=== PATIENT | male | born 1995 | race Caucasian/White ===

== ENCOUNTER 2017-06-01 14:54 | Emergency (ER) | payer SELFPAY ==
--- NOTE | 2017-06-01 16:09 | ED ORDER SUMMARY ---
..... Patient: RAQUEL EDWARDS OrderSheet [facility] VisitID: [id number] [place] [address] 22y, M Registration Date/Time: 06/01/2017 ORDER SHEET Weight: 104.3 kg (stated) Allergies: No Known Drug Allergy GENERAL ORDERS: CBC w Diff Urgent (15:11 06/01/2017 HBivens A.R.N.P.) (Ack 15:15 OHstephennandez) (15:23 LWhalen R.N.) CMP Urgent (15:06/01/2017 HBivens A.R.N.P.) (Ack 15:15 OHstephennandez) (15:23 LWhalen R.N.) UA-Culture if indicated Urgent (15:06/01/2017 HBivens A.R.N.P.) (Ack 15:15 Lindanandez) (15:23 LWhalen R.N.) Amylase Urgent (15:06/01/2017 HBivens A.R.N.P.) (Ack 15:15 OHernandez) (15:23 LWhalen R.N.) Lipase Urgent (15:11 06/01/2017 HBivens A.R.N.P.) (Ack 15:15 OHernandez) (15:23 LWhalen R.N.) MEDICATION ORDERS: GI Cocktail WHITE PO 30 mL with Lidocaine Viscous Mouth/Throat 15 mL, Maalox Plus Oral 15 mL (NOW) (15:06/01/2017 HBivens A.R.N.P.) (15:23 LWhalen R.N.) IV FLUIDS: IV Saline Lock (15:06/01/2017 HBivens A.R.N.P.) (Ack 15:23 LWhalen R.N.) Zofran IV 4 mg (NOW) (16:08 06/01/2017 HBivens A.R.N.P.) (16:25 LWhalen R.N.) ORDER SHEET NOTES: [Electronically signed by Elizabeth Chandler R.N. (16:30 06/01/2017)] [Electronically signed by Shirin Sherwood (17:56 06/01/2017)] [Electronically locked/signed by Elizabeth Chandler R.N. (16:30 06/01/2017)]
--- NOTE | 2017-06-01 16:09 | ED NURSING NOTES ---
Clinical Report - Nurses [facility] [address] [place] [address] 06/01/2017 14:55 Patient: RAQUEL EDWARDS TRIAGE Triage time 15:Jun 01 2017. Acuity: LEVEL 3. Chief Complaint: ABDOMINAL PAIN and NAUSEA. ARELI COMA SCORE: Spencer Coma Scale: 15- eyes open spontaneously (4); best verbal response- oriented x 4 (5); best motor response- obeys commands (6). --15:13 Elizabeth Chandler R.N. 15:01 06/01/17. BP: 172/74. HR: 8. RR: 18. O2 saturation: 100%. Temp: 98.6 F. Pain level now 7/10. --15:13 Elizabeth Chandler R.N. Weight: 104.3 kg stated. Height/Length: 67 inches Per Patient. BMI: 36. --15:09 Elizabeth Chandler R.N. Medications Omeprazole Oral. --15:05 Elizabeth Chandler R.N. Phenergan (Promethazine) Oral. --15:05 Elizabeth Chandler R.N. Flonase Nasal. --15:06 Elizabeth Chandler R.N. Allergies No Known Drug Allergy. --15:06 Elizabeth Chandler R.N. History Arrived by private vehicle. Historian: patient. Accompanied by (aunt). Onset. (2 weeks ago). ( Lost 15 lbs in 2 weeks. Having severe nausea and stomach aches. With pains that radiate from upper left quad of abd and sharp pains on right upper quad that comes and goes.). He has had nausea, diarrhea, constipation and abdominal pain. PAST MEDICAL HX: Immunizations: status is unknown. SOCIAL HX: Former smoker, end date 2014. History of drug use: marijuana. No alcohol use. No recent travel. No known contact with a sick individual. SELF HARM ASSESSMENT: A self harm assessment was performed. The patient answered "no" to the question "Have you recently felt down, depressed, or hopeless?" and "Do you have thoughts of harming or killing yourself?". FALL RISK ASSESSMENT: Fall risk assessment completed. No fall risk identified. NUTRITIONAL RISK ASSESSMENT: The nutritional risk assessment revealed no deficiencies. FUNCTIONAL ASSESSMENT: Functional assessment: no impairments noted. LEARNING NEEDS ASSESSMENT: The learning needs assessment revealed no barriers. ABUSE ASSESSMENT: Abuse assessment: (yes) The patient was asked "Do you feel safe in your home?". SKIN INTEGRITY ASSESSMENT: Skin integrity risk assessment completed. No skin integrity risk identified. --15:13 Elizabeth Chandler R.N. PROBLEMS: Heasdaches . Seasonal allergic rhinitis. Asthma. --15:08 Elizabeth Chandler R.N. ADDITIONAL SURGERIES: Pyloric Stenosis Surgery. Tonsillectomy. --15:08 Elizabeth Chandler R.N. Interventions ID band on patient. --15:13 Elizabeth Chandler R.N. PHYSICAL ASSESSMENT Ambulatory to room. GENERAL / NEURO / PSYCH: Alert. Oriented X 4. Appears in no acute distress. HEENT: Mucous membranes are pink. RESPIRATORY: Respirations not labored. Breath sounds within normal limits. CVS: Normal sinus rhythm noted. Capillary refill less than 2 seconds. GI / : The patient has had nausea. Abdominal tenderness. Normal genitalia. Stool color normal. Stool heme negative. (POC test reference range: negative). ( Last BM this am and normal). SKIN: Skin is warm and dry. --15:15 Elizabeth Chandler R.N. NURSING PROGRESS NOTES The initial plan of care for this patient includes an assessment with efforts to address patient positioning, appropriate ambient lighting and comfortable environmental temperature; impairment of the gastrointestinal system. Pulse oximeter and NIBP monitor placed on patient. Head of bed elevated 75 degrees. Reassurance given. Call light placed in reach. Side rails up x 1. Bed placed in lowest position. --15:15 Elizabeth Chandler R.N. 15:18 06/01/2017 GI COCKTAIL WHITE (Simethicone) PO Oral Suspension 30 mL given. Allergies verified and confirmed 5 rights. --15:23 Elizabeth Chandler R.N. 15:24. Checked patient name and birthdate: patient confirmed. Blood samples drawn from the right antecubital space by tech per protocol ; labeled in presence of the patient and sent to lab: sammy set. --15:24 Janee Bob ER Tech1 15:59 06/01/2017 Site #1 started via IV in the right antecubital space with an 20g angiocath, with aseptic technique and good blood return; one attempt. Saline lock flushed with saline. --16:24 Elizabeth Chandler R.N. 16:24 06/01/2017 Zofran (Ondansetron HCl) IVP 4 mg given over 2 minute(s) via site #1. Allergies verified and confirmed 5 rights. IV patency established. IV site checked: no pain, redness, or swelling. IV flushed thoroughly pre- and post-medication administration. --16:25 Elizabeth Chandler R.N. DISPOSITION / DISCHARGE Condition at departure: improved. No learning barriers present. Discharge instructions provided and reviewed with the patient. Reviewed warnings. Reviewed medication(s). Treatments reviewed. Reviewed referrals. Patient verbalized understanding. Written instructions provided in Swedish. The patient was discharged home and accompanied by family. He left the Emergency Department ambulatory and via private vehicle. Family member driving. --16:29 Eliazbeth Chandler R.N. 16:26 06/01/17. BP: 148/82. HR: 74. RR: 20. O2 saturation: 99%. Temp: 98.6 F. Pain level now 6/10. --16:29 Elizabeth Chandler R.N. Departure time: 16:Jun 01 2017. --16:29 Elizabeth Chandler R.N. 16:30 06/01/2017 Site #1 removed upon discharge. Catheter intact. Pressure dressing applied. --16:30 Elizabeth Chandler R.N. Locked/Released at 06/01/2017 16:30 by Elizabeth Chandler R.N.
--- NOTE | 2017-06-01 16:09 | ED CLINICAL REPORT ---
Clinical Report - Physicians/Mid Levels [facility] [address] [place] [address] 06/01/2017 14:55 Patient: RAQUEL EDWARDS Time Seen: 14:58; initial patient contact, initial documentation, patient care assumed. Arrived- By private vehicle. Historian- patient. HISTORY OF PRESENT ILLNESS Chief Complaint: ABDOMINAL PAIN. This started about 3 weeks ago and is still present. It has been constant. At its maximum, severity described as severe. When seen in the E.D., severity described as severe. Modifying factors- worsened by food. Not relieved by anything. It is described as "pain" and burning. No radiation. It is described as located in the epigastric area and left upper quadrant and in the upper abdomen. The patient has had nausea and loss of appetite. No vomiting or diarrhea. No additional abdominal pain. No recent travel. Similar symptoms previously: None. Recent medical care: The patient was seen recently in a clinic. ( went to walk in clinic x3 weeks ago, dx gerd, given rx prilosec and phenergan, which helped a little, no f/u, no money and no insurance). REVIEW OF SYSTEMS No constipation, black stools, hematemesis, difficulty with urination or pain with urination. No urinary frequency, fever, chest pain or difficulty breathing. All systems otherwise negative, except as recorded above. PAST HISTORY See nurses notes. PROBLEMS: Heasdaches . Seasonal allergic rhinitis. Asthma. --15:08 Elizabeth Chandler RGrisel. ADDITIONAL SURGERIES: Pyloric Stenosis Surgery. Tonsillectomy. --15:08 Elizabeth Chandler R.N. SOCIAL HISTORY Light tobacco smoker. Occasional alcohol use. History of occasional drug use: marijuana. No recent travel. Is a local resident. FAMILY HISTORY Negative. ADDITIONAL NOTES The nursing notes have been reviewed with agreement regarding the chief complaint, HPI, ROS, PMH and patient medications and allergies. PHYSICAL EXAM Vital Signs: 06/01/2017 15:01 BP: 172/74. HR: 8. RR: 18. O2 saturation: 100%. Temp: 98.6 F. Have been reviewed as normal and appear to be correct. Appearance: Alert. Oriented X3. No acute distress. Eyes: Pupils equal, round and reactive to light. Eyes normal inspection. Neck: Normal inspection. Neck supple. CVS: Normal heart rate and rhythm. Heart sounds normal. Pulses normal. Respiratory: No respiratory distress. Breath sounds normal. Chest nontender. Abdomen: Soft and nontender. Bowel sounds normal. No organomegaly. No mass. Back: Normal inspection. Skin: Skin warm and dry. Normal skin color. No rash. Normal skin turgor. Extremities: Extremities exhibit normal ROM. No lower extremity edema. Neuro: Oriented X 3. No motor deficit. No sensory deficit. LABS, X-RAYS, AND EKG Laboratory Tests: CBC w Diff: (MICHAEL: 06/01/2017 15:26) ( [facility]33) Final results Test Result Flag Units (Reference) WHITE BLOOD COUNT 9.0 K/uL (4.5-11.5) RED BLOOD COUNT 5.32 M/uL (4.50-5.90) HEMOGLOBIN 15.6 gm/dL (13.5-17.5) HEMATOCRIT 46.7 % (41.0-53.0) MEAN CELL VOLUME 88 fL (80-100) MEAN CORPUSCULAR HGB 29 pg (26-34) MEAN CORPUSCULAR HGB CONC 34 g/dL (31-37) RED CELL DISTRIBUTION WIDTH 13.0 % (11.6-14.8) PLATELET COUNT 226 K/uL (150-400) NEUTROPHIL % 72.0 % (50-75) LYMPH % 21.2 L % (25-40) MONO % 5.6 % (3-14) EOSINOPHIL % 1.0 % (0-4) BASOPHIL % 0.2 % (0-2) CMP: (MICHAEL: 06/01/2017 15:26) ( HigRcvd 06/01/2017 15:55) Final results Test Result Flag Units (Reference) GLUCOSE 103 mg/dL (70-110) BUN 9 mg/dL (7-18) CREATININE 0.9 mg/dL (0.6-1.3) Estimated GFR >60 mL/min Estimated GFR- >60 mL/min Note: Persistent reduction over 3 months in eGFR<60 mL/min/1.73 m2 defines CKD. Patients with eGFR values>=60 mL/min/1.73 m2 may also have CKD if evidence ofpersistent proteinuria. Additional information may be foundat www.kidney.org. SODIUM 143 mmol/L (136-145) POTASSIUM 3.3 L mmol/L (3.5-5.1) CHLORIDE 106 mmol/L (98-107) CARBON DIOXIDE 25 mmol/L (21-32) CALCIUM 9.5 mg/dL (8.5-10.1) TOTAL PROTEIN 7.7 g/dL (6.4-8.2) ALBUMIN 4.6 g/dL (3.3-5.0) BILIRUBIN, TOTAL 0.9 mg/dL (0.0-1.0) ALKALINE PHOSPHATASE 72 U/L (46-116) AST (SGOT) 17 U/L (15-37) ALT (SGPT) 22 U/L (12-78) LIPASE 119 U/L (73-393) AMYLASE 41 U/L (25-115) . PROGRESS AND PROCEDURES Patient counseled regarding the patient's stable condition, test results and diagnosis. Differential Diagnosis: I considered gastritis, gastroenteritis, peptic ulcer disease, gastroesophageal reflux disease, esophageal perforation, ulcerative colitis, Crohn's disease, splenic abscess and viral syndrome as a possible cause of abdominal pain in this patient. This is a partial list of diagnoses considered. Above considerations are based on history, physical exam, reassessment and laboratory data. Differential diagnosis was discussed with patient. Disposition: Discharged home in good and improved condition (16:08). Condition: good and stable. CLINICAL IMPRESSION Gastroesophageal reflux disease. No esophagitis. INSTRUCTIONS Warnings: GENERAL WARNINGS: Return or contact your physician immediately if your condition worsens or changes unexpectedly, if not improving as expected, or if other problems arise. SPECIFICALLY, return if you develop pain in the abdomen, fever, the inability to keep fluids down, blood in vomitus, blood in diarrhea, fainting or lightheadedness. Prescription Medications: Zofran 4 mg: Take 1 orally every six hours as needed for nausea/vomiting. Dispense ten (10). No refills. Substitution is permissible. Prevacid 30 mg capsules: Take 1 capsule orally once daily. Dispense fifteen (15). No refills. Substitution is permissible. Follow-up: Screening today revealed the patient's blood pressure to be in the hypertensive range. The patient should follow up with a primary care provider for blood pressure management. Understanding of the discharge instructions verbalized by patient. Follow-up with: Ramon Morel MD, [facility], , [facility], [address] [place] [address], [facility]; Kirill Garland MD, Gastroenterology, , [address] , [place], [id number]; Ankit Dillard MD, Gastroenterology, , [address] [place] [address], [address], [place], [address]; Jemima Flores MD, Gastroenteroloy, , [facility] [address], [place], [address]; Heron Coulter MD, Gastroenteroloy, , [facility], [place], [address]; Johan Petty MD, Gastroenteroloy, , [address], [place], [address] Follow up in about two days as needed. Call for an appointment. Summary of care provided to patient. (Electronically signed by Shirin Sherwood A.R.N.P. 06/01/2017 17:56)
--- NOTE | 2017-06-01 16:09 | ED CLINICAL REPORT ---
Clinical Report - Physicians/Mid Levels [facility] [address] [place] [address] 06/01/2017 14:55 Patient: RAQUEL EDWARDS Time Seen: 14:58; initial patient contact, initial documentation, patient care assumed. Arrived- By private vehicle. Historian- patient. HISTORY OF PRESENT ILLNESS Chief Complaint: ABDOMINAL PAIN. This started about 3 weeks ago and is still present. It has been constant. At its maximum, severity described as severe. When seen in the E.D., severity described as severe. Modifying factors- worsened by food. Not relieved by anything. It is described as "pain" and burning. No radiation. It is described as located in the epigastric area and left upper quadrant and in the upper abdomen. The patient has had nausea and loss of appetite. No vomiting or diarrhea. No additional abdominal pain. No recent travel. Similar symptoms previously: None. Recent medical care: The patient was seen recently in a clinic. ( went to walk in clinic x3 weeks ago, dx gerd, given rx prilosec and phenergan, which helped a little, no f/u, no money and no insurance). REVIEW OF SYSTEMS No constipation, black stools, hematemesis, difficulty with urination or pain with urination. No urinary frequency, fever, chest pain or difficulty breathing. All systems otherwise negative, except as recorded above. PAST HISTORY See nurses notes. PROBLEMS: Heasdaches . Seasonal allergic rhinitis. Asthma. --15:08 Elizabeth Chandler RGrisel. ADDITIONAL SURGERIES: Pyloric Stenosis Surgery. Tonsillectomy. --15:08 Elizabeth Chandler R.N. SOCIAL HISTORY Light tobacco smoker. Occasional alcohol use. History of occasional drug use: marijuana. No recent travel. Is a local resident. FAMILY HISTORY Negative. ADDITIONAL NOTES The nursing notes have been reviewed with agreement regarding the chief complaint, HPI, ROS, PMH and patient medications and allergies. PHYSICAL EXAM Vital Signs: 06/01/2017 15:01 BP: 172/74. HR: 8. RR: 18. O2 saturation: 100%. Temp: 98.6 F. Have been reviewed as normal and appear to be correct. Appearance: Alert. Oriented X3. No acute distress. Eyes: Pupils equal, round and reactive to light. Eyes normal inspection. Neck: Normal inspection. Neck supple. CVS: Normal heart rate and rhythm. Heart sounds normal. Pulses normal. Respiratory: No respiratory distress. Breath sounds normal. Chest nontender. Abdomen: Soft and nontender. Bowel sounds normal. No organomegaly. No mass. Back: Normal inspection. Skin: Skin warm and dry. Normal skin color. No rash. Normal skin turgor. Extremities: Extremities exhibit normal ROM. No lower extremity edema. Neuro: Oriented X 3. No motor deficit. No sensory deficit. LABS, X-RAYS, AND EKG Laboratory Tests: CBC w Diff: (MICHAEL: 06/01/2017 15:26) ( [facility]) Final results Test Result Flag Units (Reference) WHITE BLOOD COUNT 9.0 K/uL (4.5-11.5) RED BLOOD COUNT 5.32 M/uL (4.50-5.90) HEMOGLOBIN 15.6 gm/dL (13.5-17.5) HEMATOCRIT 46.7 % (41.0-53.0) MEAN CELL VOLUME 88 fL (80-100) MEAN CORPUSCULAR HGB 29 pg (26-34) MEAN CORPUSCULAR HGB CONC 34 g/dL (31-37) RED CELL DISTRIBUTION WIDTH 13.0 % (11.6-14.8) PLATELET COUNT 226 K/uL (150-400) NEUTROPHIL % 72.0 % (50-75) LYMPH % 21.2 L % (25-40) MONO % 5.6 % (3-14) EOSINOPHIL % 1.0 % (0-4) BASOPHIL % 0.2 % (0-2) CMP: (MICHAEL: 06/01/2017 15:26) ( IngRcvd 06/01/2017 15:55) Final results Test Result Flag Units (Reference) GLUCOSE 103 mg/dL (70-110) BUN 9 mg/dL (7-18) CREATININE 0.9 mg/dL (0.6-1.3) Estimated GFR >60 mL/min Estimated GFR- >60 mL/min Note: Persistent reduction over 3 months in eGFR<60 mL/min/1.73 m2 defines CKD. Patients with eGFR values>=60 mL/min/1.73 m2 may also have CKD if evidence ofpersistent proteinuria. Additional information may be foundat www.kidney.org. SODIUM 143 mmol/L (136-145) POTASSIUM 3.3 L mmol/L (3.5-5.1) CHLORIDE 106 mmol/L (98-107) CARBON DIOXIDE 25 mmol/L (21-32) CALCIUM 9.5 mg/dL (8.5-10.1) TOTAL PROTEIN 7.7 g/dL (6.4-8.2) ALBUMIN 4.6 g/dL (3.3-5.0) BILIRUBIN, TOTAL 0.9 mg/dL (0.0-1.0) ALKALINE PHOSPHATASE 72 U/L (46-116) AST (SGOT) 17 U/L (15-37) ALT (SGPT) 22 U/L (12-78) LIPASE 119 U/L (73-393) AMYLASE 41 U/L (25-115) . PROGRESS AND PROCEDURES Patient counseled regarding the patient's stable condition, test results and diagnosis. Differential Diagnosis: I considered gastritis, gastroenteritis, peptic ulcer disease, gastroesophageal reflux disease, esophageal perforation, ulcerative colitis, Crohn's disease, splenic abscess and viral syndrome as a possible cause of abdominal pain in this patient. This is a partial list of diagnoses considered. Above considerations are based on history, physical exam, reassessment and laboratory data. Differential diagnosis was discussed with patient. Disposition: Discharged home in good and improved condition (16:08). Condition: good and stable. CLINICAL IMPRESSION Gastroesophageal reflux disease. No esophagitis. INSTRUCTIONS Warnings: GENERAL WARNINGS: Return or contact your physician immediately if your condition worsens or changes unexpectedly, if not improving as expected, or if other problems arise. SPECIFICALLY, return if you develop pain in the abdomen, fever, the inability to keep fluids down, blood in vomitus, blood in diarrhea, fainting or lightheadedness. Prescription Medications: Zofran 4 mg: Take 1 orally every six hours as needed for nausea/vomiting. Dispense ten (10). No refills. Substitution is permissible. Prevacid 30 mg capsules: Take 1 capsule orally once daily. Dispense fifteen (15). No refills. Substitution is permissible. Follow-up: Screening today revealed the patient's blood pressure to be in the hypertensive range. The patient should follow up with a primary care provider for blood pressure management. Understanding of the discharge instructions verbalized by patient. Follow-up with: Ramon Morel MD, [facility], , [facility], [address] [place] [address], [facility]; Kirill Garland MD, Gastroenterology, , [address] , [place], [phone]; Ankit Dillard MD, Gastroenterology, , [address] [place] [address], [address], [place], [phone]; Jemima Flores MD, Gastroenteroloy, , [facility] [address], [place], [address]; Heron Coulter MD, Gastroenteroloy, , [facility], [place], [address]; Johan Petty MD, Gastroenteroloy, , [address], [place], [phone] Follow up in about two days as needed. Call for an appointment. Summary of care provided to patient. (Electronically signed by Shirin Sherwood A.R.N.P. 06/01/2017 17:56)
--- NOTE | 2017-06-01 16:09 | ED ORDER SUMMARY ---
..... Patient: RAQUEL EDWARDS OrderSheet [facility] VisitID: [id number] [place] [address] 22y, M Registration Date/Time: 06/01/2017 ORDER SHEET Weight: 104.3 kg (stated) Allergies: No Known Drug Allergy GENERAL ORDERS: CBC w Diff Urgent (15:11 06/01/2017 HBivens A.R.N.P.) (Ack 15:15 OHstephennandez) (15:23 LWhalen R.N.) CMP Urgent (15:06/01/2017 HBivens A.R.N.P.) (Ack 15:15 OHstephennandez) (15:23 LWhalen R.N.) UA-Culture if indicated Urgent (15:06/01/2017 HBivens A.R.N.P.) (Ack 15:15 Lindanandez) (15:23 LWhalen R.N.) Amylase Urgent (15:06/01/2017 HBivens A.R.N.P.) (Ack 15:15 OHernandez) (15:23 LWhalen R.N.) Lipase Urgent (15:11 06/01/2017 HBivens A.R.N.P.) (Ack 15:15 OHernandez) (15:23 LWhalen R.N.) MEDICATION ORDERS: GI Cocktail WHITE PO 30 mL with Lidocaine Viscous Mouth/Throat 15 mL, Maalox Plus Oral 15 mL (NOW) (15:06/01/2017 HBivens A.R.N.P.) (15:23 LWhalen R.N.) IV FLUIDS: IV Saline Lock (15:06/01/2017 HBivens A.R.N.P.) (Ack 15:23 LWhalen R.N.) Zofran IV 4 mg (NOW) (16:08 06/01/2017 HBivens A.R.N.P.) (16:25 LWhalen R.N.) ORDER SHEET NOTES: [Electronically signed by Elizabeth Chandler R.N. (16:30 06/01/2017)] [Electronically signed by Shirin Sherwood (17:56 06/01/2017)] [Electronically locked/signed by Elizabeth Chandler R.N. (16:30 06/01/2017)]
--- NOTE | 2017-06-01 17:56 | ED DISCHARGE INSTRUCTIONS ---
Patient: RAQUEL EDWARDS General Instructions [facility] VisitID: [id number] [place] [address] 22y, M Registration Date/Time: 06/01/2017 Gastroesophageal reflux disease. No esophagitis. INSTRUCTIONS Warnings: GENERAL WARNINGS: Return or contact your physician immediately if your condition worsens or changes unexpectedly, if not improving as expected, or if other problems arise. SPECIFICALLY, return if you develop pain in the abdomen, fever, the inability to keep fluids down, blood in vomitus, blood in diarrhea, fainting or lightheadedness. Prescription Medications: Zofran 4 mg: Take 1 orally every six hours as needed for nausea/vomiting. Dispense ten (10). No refills. Substitution is permissible. Prevacid 30 mg capsules: Take 1 capsule orally once daily. Dispense fifteen (15). No refills. Substitution is permissible. Follow-up: Screening today revealed the patient's blood pressure to be in the hypertensive range. The patient should follow up with a primary care provider for blood pressure management. Understanding of the discharge instructions verbalized by patient. Follow-up with: Ramon Morel MD, [facility], , [facility] [address]; Kirill Garland MD, Gastroenterology, , [address] , [place], [id number]; Ankit Dillard MD, Gastroenterology, , [address] [place] [address], [address], [place], [id number]; Jemima Flores MD, Gastroenteroloy, , [address] [place] [address] [address], [place], [id number]; Heron Coulter MD, Gastroenteroloy, , [address] [place] [address] [address], [place], [id number]; Johan Petty MD, Gastroenteroloy, , [address] [place] [address] [address], [place], [id number] Follow up in about two days as needed. Call for an appointment. Summary of care provided to patient. ADDITIONAL INFORMATION GERD (Adult) The esophagus is a tube that carries food from the mouth to the stomach. A valve at the lower end of the esophagus prevents stomach acid from flowing upward. If this valve does not work properly, acid from the stomach enters the esophagus. If this occurs over and over, the acid will injure the lining of the esophagus. This condition is called GERD (gastroesophageal reflux disease) or acid reflux. When stomach acid flows upward into the esophagus, it causes burning, pressure or sharp pain in the upper abdomen or mid to lower chest. The pain can spread to the neck, back, or shoulder, similar to heart pain (angina). There may be belching, an acid taste in the back of the throat, chronic cough, or sore throat or hoarseness. GERD symptoms often occur during the day after a big meal, but it can also occur at night when lying down. Smoking,as well as drinking alcohol, increases the risk of GERD. GERD is a chronic condition. Once it begins, it is often lifelong. Treatment includes changes in eating habits and the use of acid zak medications to decrease the amount of acid in the stomach. Symptoms often improve with treatment, but if treatment is stopped, the symptoms usually return after a few months. So most persons with GERD will need to continue treatment. Home Care: Take the prescribed acid zak medication for the full course of treatment even if you begin to feel better sooner. This medication can take up to several days to fully control your symptoms. If you cant afford the prescribed medication, you can try [id number] acid blockers, such as Pepcid AC, Tagamet, Zantac, or Aciphex. If these do not relieve your symptoms, a stronger acid-zak can be tried, such as Prilosec OTC. You can use antacids, such as Tums, Rolaids, Mylanta, or Maalox, for pain. This will be useful the first few days after starting acid blockers when the blockers havent started working yet. Follow the directions on the label. Liquid antacids may work better than tablets. Note that antacids can interfere with absorption of certain medications. Specifically, do not take Tagamet (cimetidine), Zantac (ranitidine), or Carafate (sucralfate) within 1 hour of taking an antacid. Talk with your pharmacist if you have any questions. Limit or avoid fatty, fried, and spicy foods, as well as coffee, chocolate, mint, and foods with high acid content such as tomatoes and citrus fruit and juices (orange, grapefruit, lemon). Avoid alcohol and smoking. Dont eat large meals, especially at night. Frequent, smaller meals are best. Do not lie down right after eating. And dont eat anything 3 hours before going to bed. If you are overweight, losing weight will reduce symptoms. Women should not wear corsets or girdles because this increases pressure on the stomach and worsens reflux. If your symptoms occur during sleep, use a foam wedge to elevate your upper body (not just your head.) Or, place 4" blocks under the head of your bed. Follow Up with your doctor or as advised by our staff. Further testing may be needed. If you do not begin to improve over the next 4 days, contact your doctor. If you had an x-ray, CT scan, or ECG (electrocardiogram), it will be reviewed by a specialist. Youll be notified of any new findings that affect your care. Get Prompt Medical Attention if any of the following occur: Stomach pain gets worse or moves to the lower right abdomen (appendix area) Chest pain appears or gets worse, or spreads to the back, neck, shoulder, or arm Frequent vomiting (cant keep down liquids) Blood in the stool or vomit (red or black in color) Feeling weak or dizzy, fainting, or trouble breathing Fever of 100.4F (38C) or higher, or as directed by your healthcare provider [place] Diet A bland diet is used for patients with an upset stomach. It consists of foods that are mild and easy to digest. It is better to eat small frequent meals rather than three large meals a day. BEVERAGES OK: Fruit juices, non-caffeinated teas and coffee, non-carbonated augustin AVOID: Carbonated beverage, caffeinated tea and coffee, all alcoholic beverages BREAD OK: Refined white, wheat or rye bread, ayla or soda crackers, Edith toast, plain rolls, bagels AVOID: Whole-grain bread CEREAL OK: Refined cereals: cooked or ready to eat AVOID: Whole grain cereals and granola, or those containing bran, seeds or nuts DESSERTS OK: Peanut butter and all others except those to "avoid" AVOID: Chocolate, cocoa, coconut, popcorn, nuts, seeds, jam, marmalade FRUITS OK: Canned, cooked, frozen or fresh fruits without seeds or tough skin AVOID: Olives, skin and seeds of fruit MEATS OK: All fresh or preserved meat, fish and fowl AVOID: Any that are prepared with those spices to "avoid" CHEESE & EGGS OK: Eggs, cottage cheese, cream cheese, other cheeses AVOID: All cheeses made with those spices to "avoid" POTATOES & PASTA OK: Potato, rice, macaroni, noodles, spaghetti AVOID: None SOUPS OK: All soups without heavy seasoning AVOID: Soups made with those spices to "avoid" VEGETABLES OK: Canned, cooked, fresh or frozen mildly flavored vegetables without seeds, skins or coarse fiber AVOID: Vegetables prepared with those spices to "avoid"; skin and seeds of vegetables and those with coarse fiber SPICES OK: Salt, lemon and [place] juice, vinegar, all extracts, anastasiya, cinnamon, thyme, mace, allspice, paprika AVOID: [place] powder, cloves, pepper, seed spices, garlic, gravy pickles, highly seasoned salad dressings Ondansetron Oral disintegrating tablet What is this medicine? ONDANSETRON (on PAWEL se aimee) is used to treat nausea and vomiting caused by chemotherapy. It is also used to prevent or treat nausea and vomiting after surgery. How should I use this medicine? These tablets are made to dissolve in the mouth. Do not try to push the tablet through the foil backing. With dry hands, peel away the foil backing and gently remove the tablet. Place the tablet in the mouth and allow it to dissolve, then swallow. While you may take these tablets with water, it is not necessary to do so. Talk to your merchandising lead regarding the use of this medicine in children. Special care may be needed. What side effects may I notice from receiving this medicine? Side effects that you should report to your doctor or health career technical supervisor as soon as possible: allergic reactions like skin rash, itching or hives, swelling of the face, lips, or tongue breathing problems dizziness fast or irregular heartbeat feeling faint or lightheaded, falls fever and chills swelling of the hands and feet tightness in the chest Side effects that usually do not require medical attention (report to your doctor or health career technical supervisor if they continue or are bothersome): constipation or diarrhea headache What may interact with this medicine? Do not take this medicine with any of the following medications: -apomorphine -cisapride -dofetilide -dronedarone -pimozide -thioridazine -ziprasidone This medicine may also interact with the following medications: -carbamazepine -phenytoin -rifampicin -tramadol -other medicines that prolong the QT interval (cause an abnormal heart rhythm) What if I miss a dose? If you miss a dose, take it as soon as you can. If it is almost time for your next dose, take only that dose. Do not take double or extra doses. Where should I keep my medicine? Keep out of the reach of children. Store between 2 and 30 degrees C (36 and 86 degrees F). Throw away any unused medicine after the expiration date. What should I tell my health care provider before I take this medicine? They need to know if you have any of these conditions: heart disease history of irregular heartbeat liver disease low levels of magnesium or potassium in the blood an unusual or allergic reaction to ondansetron, granisetron, other medicines, foods, dyes, or preservatives or trying to get breast-feeding What should I watch for while using this medicine? Check with your doctor or health career technical supervisor as soon as you can if you have any sign of an allergic reaction. Lansoprazole Oral capsule, gastro-resistant sprinkles What is this medicine? LANSOPRAZOLE (kulwant JORDYN pra zole) prevents the production of acid in the stomach. It is used to treat gastroesophageal reflux disease (GERD), ulcers, certain bacteria in the stomach, inflammation of the esophagus, and Rosa-Zamorano Syndrome. It can also be used to prevent and treat ulcers in patients taking medicines called non-steroidal anti-inflammatory drugs (NSAIDs). How should I use this medicine? Take this medicine by mouth. Swallow the capsules whole with a drink of water. Follow the directions on the prescription label. Do not crush or chew. This medicine works best if taken on an empty stomach 30 to 60 minutes before food. Take your medicine at regular intervals. Do not take more often than directed. If you have difficulty swallowing the capsules, you may open the capsule and sprinkle the contents on a tablespoon of any of the following foods: applesauce, Ensure brand pudding, cottage cheese, yogurt, or strained pears. Do not crush the contents of the capsule into the food. Swallow the dose immediately after preparing it. Do not chew. Follow with a drink of water. Talk to your merchandising lead regarding the use of this medicine in children. Special care may be needed. What side effects may I notice from receiving this medicine? Side effects that you should report to your doctor or health career technical supervisor as soon as possible: allergic reactions like skin rash, itching or hives, swelling of the face, lips, or tongue bone, muscle or joint pain breathing problems chest pain or chest tightness dark yellow or brown urine diarrhea dizziness fast, irregular heartbeat feeling faint or lightheaded fever or sore throat muscle spasm palpitations redness, blistering, peeling or loosening of the skin, including inside the mouth seizures tremors unusual bleeding or bruising unusually weak or tired yellowing of the eyes or skin Side effects that usually do not require medical attention (Report these to your doctor or health career technical supervisor if they continue or are bothersome.): constipation dry mouth headache loose stools nausea What may interact with this medicine? Do not take this medicine with any of the following medications: atazanavir nelfinavir This medicine may also interact with the following medications: ampicillin delavirdine digoxin diuretics iron salts itraconazole, ketoconazole, voriconazole, or other prescription medicines for fungus or yeast infections sucralfate theophylline warfarin What if I miss a dose? If you miss a dose, take it as soon as you can. If it is almost time for your next dose, take only that dose. Do not take double or extra doses. Where should I keep my medicine? Keep out of the reach of children. Store at room temperature between 15 and 30 degrees C (59 and 86 degrees F). Protect from moisture. Throw away any unused medicine after the expiration date. What should I tell my health care provider before I take this medicine? They need to know if you have any of these conditions: liver disease low levels of magnesium in the blood an unusual or allergic reaction to lansoprazole, other medicines, foods, dyes, or preservatives or trying to get breast-feeding What should I watch for while using this medicine? It can take several days before your stomach pain gets better. Check with your doctor or health career technical supervisor if your condition does not start to get better, or if it gets worse. Do not treat diarrhea with over the counter products. Contact your doctor if you have diarrhea that lasts more than 2 days or if it is severe and watery. You may need blood work done while you are taking this medicine. You have been given the following additional information: GERD (Adult) Diet, [place] (Adult) Ondansetron Oral disintegrating tablet Lansoprazole Oral capsule, gastro-resistant sprinkles (Electronically signed by Shirin Sherwood A.R.N.P. 06/01/2017 17:56)
--- NOTE | 2017-06-01 17:56 | ED MAR SUMMARY ---
..... Medication Administration Record [facility] [address] [place] [address] Patient: RAQUEL EDWARDS Visit ID: [id number] 22y, M Weight: 104.3 kg Height/Length: 67 in BMI: 36 ALLERGIES: No Known Drug Allergy Given 15:18 06/01/2017 Elizabeth Chandler RChristineNChristine Medication Administered: GI COCKTAIL WHITE [PO] (SIMETHICONE), Dose: 30 mL Oral Suspension PO. Medication Ordered: GI Cocktail WHITE PO 30 mL with Lidocaine Viscous Mouth/Throat 15 mL, Maalox Plus Oral 15 mL (NOW). Given 16:24 06/01/2017 Elizabeth Chandler R.N. Medication Administered: ZOFRAN [IVP] (ONDANSETRON HCL), Dose: 4 mg IVP over 2 minute(s), Site: #1 right AC. Medication Ordered: Zofran IV 4 mg (NOW).
--- NOTE | 2017-06-01 17:56 | ED MAR SUMMARY ---
..... Medication Administration Record [facility] [address] [place] [address] Patient: RAQUEL EDWARDS Visit ID: [id number] 22y, M Weight: 104.3 kg Height/Length: 67 in BMI: 36 ALLERGIES: No Known Drug Allergy Given 15:18 06/01/2017 Elizabeth Chandler RChristineNChristine Medication Administered: GI COCKTAIL WHITE [PO] (SIMETHICONE), Dose: 30 mL Oral Suspension PO. Medication Ordered: GI Cocktail WHITE PO 30 mL with Lidocaine Viscous Mouth/Throat 15 mL, Maalox Plus Oral 15 mL (NOW). Given 16:24 06/01/2017 Elizabeth Chandler R.N. Medication Administered: ZOFRAN [IVP] (ONDANSETRON HCL), Dose: 4 mg IVP over 2 minute(s), Site: #1 right AC. Medication Ordered: Zofran IV 4 mg (NOW).
--- NOTE | 2017-06-01 17:56 | ED MED RECONCILIATION SUMMARY ---
Patient: VAN FOREMAN RAQUEL Mattson Medication Reconciliation Report [facility] VisitID: [id number] [address] [place] [address] 22y, M Registration Date/Time: 06/01/2017 Weight: 104.3 kg Height/Length: 67 in. BMI: 36.0 ALLERGIES: No Known Drug Allergy The patient's Home Medications are listed below: THE FOLLOWING MEDICATIONS NEED TO BE RECONCILED: Flonase Nasal Omeprazole Oral Phenergan (Promethazine) Oral The source(s) of the original Home Medication information: Not obtained. The following Medications were given to the patient in the Emergency Department: GI COCKTAIL WHITE [PO] PO 30 mL, administered: 06/01/2017 3:18:00 PM Zofran [IVP] IVP 4 mg, administered: 06/01/2017 4:24:00 PM The following Medications were prescribed to the patient: Zofran 4 mg: Take 1 orally every six hours as needed for nausea/vomiting. Dispense ten (10). No refills. Substitution is permissible. -- Shirin Sherwood, A.R.N.P. Prevacid 30 mg capsules: Take 1 capsule orally once daily. Dispense fifteen (15). No refills. Substitution is permissible. -- Shirin Sherwood A.R.N.P.
--- NOTE | 2017-06-01 17:56 | ED DISCHARGE INSTRUCTIONS ---
Patient: RAQUEL EDWARDS General Instructions [facility] VisitID: [id number] [place] [address] 22y, M Registration Date/Time: 06/01/2017 Gastroesophageal reflux disease. No esophagitis. INSTRUCTIONS Warnings: GENERAL WARNINGS: Return or contact your physician immediately if your condition worsens or changes unexpectedly, if not improving as expected, or if other problems arise. SPECIFICALLY, return if you develop pain in the abdomen, fever, the inability to keep fluids down, blood in vomitus, blood in diarrhea, fainting or lightheadedness. Prescription Medications: Zofran 4 mg: Take 1 orally every six hours as needed for nausea/vomiting. Dispense ten (10). No refills. Substitution is permissible. Prevacid 30 mg capsules: Take 1 capsule orally once daily. Dispense fifteen (15). No refills. Substitution is permissible. Follow-up: Screening today revealed the patient's blood pressure to be in the hypertensive range. The patient should follow up with a primary care provider for blood pressure management. Understanding of the discharge instructions verbalized by patient. Follow-up with: Ramon Morel MD, [facility], , [facility] [place] [address]; Kirill Garland MD, Gastroenterology, , [address] , [place], [id number]; Ankit Dillard MD, Gastroenterology, , [address] [place] [address], [address], [place], [id number]; Jemima Flores MD, Gastroenteroloy, , [address] [place] [address] [address], [place], [address]; Heron Coulter MD, Gastroenteroloy, , [address] [place] [address] [address], [place], [address]; Johan Petty MD, Gastroenteroloy, , [address] [place] [address] [address], [place], [id number] Follow up in about two days as needed. Call for an appointment. Summary of care provided to patient. ADDITIONAL INFORMATION GERD (Adult) The esophagus is a tube that carries food from the mouth to the stomach. A valve at the lower end of the esophagus prevents stomach acid from flowing upward. If this valve does not work properly, acid from the stomach enters the esophagus. If this occurs over and over, the acid will injure the lining of the esophagus. This condition is called GERD (gastroesophageal reflux disease) or acid reflux. When stomach acid flows upward into the esophagus, it causes burning, pressure or sharp pain in the upper abdomen or mid to lower chest. The pain can spread to the neck, back, or shoulder, similar to heart pain (angina). There may be belching, an acid taste in the back of the throat, chronic cough, or sore throat or hoarseness. GERD symptoms often occur during the day after a big meal, but it can also occur at night when lying down. Smoking,as well as drinking alcohol, increases the risk of GERD. GERD is a chronic condition. Once it begins, it is often lifelong. Treatment includes changes in eating habits and the use of acid zak medications to decrease the amount of acid in the stomach. Symptoms often improve with treatment, but if treatment is stopped, the symptoms usually return after a few months. So most persons with GERD will need to continue treatment. Home Care: Take the prescribed acid zak medication for the full course of treatment even if you begin to feel better sooner. This medication can take up to several days to fully control your symptoms. If you cant afford the prescribed medication, you can try tojq-oot-jelcqmk acid blockers, such as Pepcid AC, Tagamet, Zantac, or Aciphex. If these do not relieve your symptoms, a stronger acid-zak can be tried, such as Prilosec OTC. You can use antacids, such as Tums, Rolaids, Mylanta, or Maalox, for pain. This will be useful the first few days after starting acid blockers when the blockers havent started working yet. Follow the directions on the label. Liquid antacids may work better than tablets. Note that antacids can interfere with absorption of certain medications. Specifically, do not take Tagamet (cimetidine), Zantac (ranitidine), or Carafate (sucralfate) within 1 hour of taking an antacid. Talk with your pharmacist if you have any questions. Limit or avoid fatty, fried, and spicy foods, as well as coffee, chocolate, mint, and foods with high acid content such as tomatoes and citrus fruit and juices (orange, grapefruit, lemon). Avoid alcohol and smoking. Dont eat large meals, especially at night. Frequent, smaller meals are best. Do not lie down right after eating. And dont eat anything 3 hours before going to bed. If you are overweight, losing weight will reduce symptoms. Women should not wear corsets or girdles because this increases pressure on the stomach and worsens reflux. If your symptoms occur during sleep, use a foam wedge to elevate your upper body (not just your head.) Or, place 4" blocks under the head of your bed. Follow Up with your doctor or as advised by our staff. Further testing may be needed. If you do not begin to improve over the next 4 days, contact your doctor. If you had an x-ray, CT scan, or ECG (electrocardiogram), it will be reviewed by a specialist. Youll be notified of any new findings that affect your care. Get Prompt Medical Attention if any of the following occur: Stomach pain gets worse or moves to the lower right abdomen (appendix area) Chest pain appears or gets worse, or spreads to the back, neck, shoulder, or arm Frequent vomiting (cant keep down liquids) Blood in the stool or vomit (red or black in color) Feeling weak or dizzy, fainting, or trouble breathing Fever of 100.4F (38C) or higher, or as directed by your healthcare provider [place] Diet A bland diet is used for patients with an upset stomach. It consists of foods that are mild and easy to digest. It is better to eat small frequent meals rather than three large meals a day. BEVERAGES OK: Fruit juices, non-caffeinated teas and coffee, non-carbonated augustin AVOID: Carbonated beverage, caffeinated tea and coffee, all alcoholic beverages BREAD OK: Refined white, wheat or rye bread, ayla or soda crackers, Edith toast, plain rolls, bagels AVOID: Whole-grain bread CEREAL OK: Refined cereals: cooked or ready to eat AVOID: Whole grain cereals and granola, or those containing bran, seeds or nuts DESSERTS OK: Peanut butter and all others except those to "avoid" AVOID: Chocolate, cocoa, coconut, popcorn, nuts, seeds, jam, marmalade FRUITS OK: Canned, cooked, frozen or fresh fruits without seeds or tough skin AVOID: Olives, skin and seeds of fruit MEATS OK: All fresh or preserved meat, fish and fowl AVOID: Any that are prepared with those spices to "avoid" CHEESE & EGGS OK: Eggs, cottage cheese, cream cheese, other cheeses AVOID: All cheeses made with those spices to "avoid" POTATOES & PASTA OK: Potato, rice, macaroni, noodles, spaghetti AVOID: None SOUPS OK: All soups without heavy seasoning AVOID: Soups made with those spices to "avoid" VEGETABLES OK: Canned, cooked, fresh or frozen mildly flavored vegetables without seeds, skins or coarse fiber AVOID: Vegetables prepared with those spices to "avoid"; skin and seeds of vegetables and those with coarse fiber SPICES OK: Salt, lemon and false pass juice, vinegar, all extracts, anastasiya, cinnamon, thyme, mace, allspice, paprika AVOID: Sutter powder, cloves, pepper, seed spices, garlic, gravy pickles, highly seasoned salad dressings Ondansetron Oral disintegrating tablet What is this medicine? ONDANSETRON (on PAWEL se aimee) is used to treat nausea and vomiting caused by chemotherapy. It is also used to prevent or treat nausea and vomiting after surgery. How should I use this medicine? These tablets are made to dissolve in the mouth. Do not try to push the tablet through the foil backing. With dry hands, peel away the foil backing and gently remove the tablet. Place the tablet in the mouth and allow it to dissolve, then swallow. While you may take these tablets with water, it is not necessary to do so. Talk to your steam [employer] records clerk regarding the use of this medicine in children. Special care may be needed. What side effects may I notice from receiving this medicine? Side effects that you should report to your doctor or health livestock caretaker as soon as possible: allergic reactions like skin rash, itching or hives, swelling of the face, lips, or tongue breathing problems dizziness fast or irregular heartbeat feeling faint or lightheaded, falls fever and chills swelling of the hands and feet tightness in the chest Side effects that usually do not require medical attention (report to your doctor or health livestock caretaker if they continue or are bothersome): constipation or diarrhea headache What may interact with this medicine? Do not take this medicine with any of the following medications: -apomorphine -cisapride -dofetilide -dronedarone -pimozide -thioridazine -ziprasidone This medicine may also interact with the following medications: -carbamazepine -phenytoin -rifampicin -tramadol -other medicines that prolong the QT interval (cause an abnormal heart rhythm) What if I miss a dose? If you miss a dose, take it as soon as you can. If it is almost time for your next dose, take only that dose. Do not take double or extra doses. Where should I keep my medicine? Keep out of the reach of children. Store between 2 and 30 degrees C (36 and 86 degrees F). Throw away any unused medicine after the expiration date. What should I tell my health care provider before I take this medicine? They need to know if you have any of these conditions: heart disease history of irregular heartbeat liver disease low levels of magnesium or potassium in the blood an unusual or allergic reaction to ondansetron, granisetron, other medicines, foods, dyes, or preservatives or trying to get breast-feeding What should I watch for while using this medicine? Check with your doctor or health livestock caretaker as soon as you can if you have any sign of an allergic reaction. Lansoprazole Oral capsule, gastro-resistant sprinkles What is this medicine? LANSOPRAZOLE (kulwant JORDYN pra zole) prevents the production of acid in the stomach. It is used to treat gastroesophageal reflux disease (GERD), ulcers, certain bacteria in the stomach, inflammation of the esophagus, and Rosa-Zamorano Syndrome. It can also be used to prevent and treat ulcers in patients taking medicines called non-steroidal anti-inflammatory drugs (NSAIDs). How should I use this medicine? Take this medicine by mouth. Swallow the capsules whole with a drink of water. Follow the directions on the prescription label. Do not crush or chew. This medicine works best if taken on an empty stomach 30 to 60 minutes before food. Take your medicine at regular intervals. Do not take more often than directed. If you have difficulty swallowing the capsules, you may open the capsule and sprinkle the contents on a tablespoon of any of the following foods: applesauce, Ensure brand pudding, cottage cheese, yogurt, or strained pears. Do not crush the contents of the capsule into the food. Swallow the dose immediately after preparing it. Do not chew. Follow with a drink of water. Talk to your steam [employer] records clerk regarding the use of this medicine in children. Special care may be needed. What side effects may I notice from receiving this medicine? Side effects that you should report to your doctor or health livestock caretaker as soon as possible: allergic reactions like skin rash, itching or hives, swelling of the face, lips, or tongue bone, muscle or joint pain breathing problems chest pain or chest tightness dark yellow or brown urine diarrhea dizziness fast, irregular heartbeat feeling faint or lightheaded fever or sore throat muscle spasm palpitations redness, blistering, peeling or loosening of the skin, including inside the mouth seizures tremors unusual bleeding or bruising unusually weak or tired yellowing of the eyes or skin Side effects that usually do not require medical attention (Report these to your doctor or health livestock caretaker if they continue or are bothersome.): constipation dry mouth headache loose stools nausea What may interact with this medicine? Do not take this medicine with any of the following medications: atazanavir nelfinavir This medicine may also interact with the following medications: ampicillin delavirdine digoxin diuretics iron salts itraconazole, ketoconazole, voriconazole, or other prescription medicines for fungus or yeast infections sucralfate theophylline warfarin What if I miss a dose? If you miss a dose, take it as soon as you can. If it is almost time for your next dose, take only that dose. Do not take double or extra doses. Where should I keep my medicine? Keep out of the reach of children. Store at room temperature between 15 and 30 degrees C (59 and 86 degrees F). Protect from moisture. Throw away any unused medicine after the expiration date. What should I tell my health care provider before I take this medicine? They need to know if you have any of these conditions: liver disease low levels of magnesium in the blood an unusual or allergic reaction to lansoprazole, other medicines, foods, dyes, or preservatives or trying to get breast-feeding What should I watch for while using this medicine? It can take several days before your stomach pain gets better. Check with your doctor or health livestock caretaker if your condition does not start to get better, or if it gets worse. Do not treat diarrhea with over the counter products. Contact your doctor if you have diarrhea that lasts more than 2 days or if it is severe and watery. You may need blood work done while you are taking this medicine. You have been given the following additional information: GERD (Adult) Diet, [place] (Adult) Ondansetron Oral disintegrating tablet Lansoprazole Oral capsule, gastro-resistant sprinkles (Electronically signed by Shirin Sherwood A.R.N.P. 06/01/2017 17:56)
--- NOTE | 2017-06-01 17:56 | ED MED RECONCILIATION SUMMARY ---
Patient: VAN FOREMAN RAQUEL Mattson Medication Reconciliation Report [facility] VisitID: [id number] [address] [place] [address] 22y, M Registration Date/Time: 06/01/2017 Weight: 104.3 kg Height/Length: 67 in. BMI: 36.0 ALLERGIES: No Known Drug Allergy The patient's Home Medications are listed below: THE FOLLOWING MEDICATIONS NEED TO BE RECONCILED: Flonase Nasal Omeprazole Oral Phenergan (Promethazine) Oral The source(s) of the original Home Medication information: Not obtained. The following Medications were given to the patient in the Emergency Department: GI COCKTAIL WHITE [PO] PO 30 mL, administered: 06/01/2017 3:18:00 PM Zofran [IVP] IVP 4 mg, administered: 06/01/2017 4:24:00 PM The following Medications were prescribed to the patient: Zofran 4 mg: Take 1 orally every six hours as needed for nausea/vomiting. Dispense ten (10). No refills. Substitution is permissible. -- Shirin Sherwood, A.R.N.P. Prevacid 30 mg capsules: Take 1 capsule orally once daily. Dispense fifteen (15). No refills. Substitution is permissible. -- Shirin Sherwood A.R.N.P.
== END 2017-06-01 16:30 | disposition home or self-care (01) ==
LOC: ED SRH 14:54
DX: K21.9 Gastro-esophageal reflux disease without esophagitis (principal); Z79.899 Other long term (current) drug therapy; F17.290 Nicotine dependence, other tobacco product, uncomplicated
CPT/HCPCS: 90004; 90074; 90100; 92235; 92530; 95059